=== PATIENT | male | born 1980 | race Caucasian/White ===

== ENCOUNTER 2016-05-21 13:20 | Inpatient (IN) | payer OTHER ==
[~2016-05-21] VITALS: Ht 162.6 cm; Wt 72.0 kg
[2016-05-21 13:22] VITALS: O2SAT 96
[2016-05-21] MEDS ORDERED: ceFAZolin 2 GM PREMIX 50 ML ONE (13:24)
[2016-05-21] MEDS ORDERED: DIPHTH/TETANUS/ACEL PERTUSSIS (BOOSTER) 0.5 ML VIAL/PFS IM ONE ×2 (13:25→13:48)
[2016-05-21 13:41] LABS: AUTOMATED NEUTROPHIL # 10.2 TH/MM3 (1.8-7.7); BASOPHIL # 0.1 TH/MM3 (0-0.2); BASOPHIL % 0.5 % (0.0-2.0); EOSINOPHIL # 0.1 TH/MM3 (0-0.4); EOSINOPHIL % 0.7 % (0.0-4.0); HEMATOCRIT 43.8 % (35.0-46.0); HEMO FLAGS DIFF FINAL; I-STAT POTASSIUM 3.5 MMOL/L (3.5-4.9); LYMPH % 21.7 % (9.0-44.0); LYMPHOCYTE # 3.1 TH/MM3 (1.0-4.8); MEAN CELL VOLUME 92.8 FL (80.0-100.0); MEAN CORPUSCULAR HEMOGLOBIN 31.7 PG (27.0-34.0); MEAN CORPUSCULAR HGB CONC 34.2 % (32.0-36.0); MONO % 4.9 % (0.0-8.0); NEUT % 72.2 % (16.0-70.0); PLATELET COUNT 310 TH/MM3 (150-450); RED BLOOD COUNT 4.72 MIL/MM3 (4.00-5.30); RED CELL DISTRIBUTION WIDTH 13.3 % (11.6-17.2); WHITE BLOOD COUNT 14.2 TH/MM3 (4.0-11.0)
[2016-05-21] MEDS ORDERED: IOHEXOL 350 MG/ML 10 ML VIAL (for RAD DIAG) IV ONE (13:47)
[2016-05-21] MEDS ORDERED: ceFAZolin 2 GM PREMIX 50 ML IV STA (13:48)
[2016-05-21 13:49] LABS: APTT (PATIENT) 22.5 SEC (24.3-30.1); PROTHROMBIN TIME - PATIENT 10.6 SEC (9.8-11.6)
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
[2016-05-21] MEDS ORDERED: ONDANSETRON HCL 4 MG/2 ML VIAL IV PRN ×2 (14:15→14:45)
[2016-05-21] MEDS ORDERED: ACETAMINOPHEN 325 MG TAB PO PRN (14:15)
[2016-05-21] MEDS ORDERED: SODIUM CHLORIDE 0.9% FLUSH 5 ML FLUSH IVF PRN (14:45)
[2016-05-21] MEDS ORDERED: MISCELLANEOUS NURSING INFORMATION XX SCH (14:45)
[2016-05-21] MEDS ORDERED: CHLORHEXIDINE GLUCONATE 2 % 1 PACK (2 CLOTHS) TOP PRN (14:45)
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
[2016-05-21] MEDS ORDERED: LIDOCAINE HCL 1% 50 ML VIAL INFIL ONE (15:00)
--- NOTE | 2016-05-21 15:27 | PD ---
Physical Exam Narrative I was asked by Dr. Chavez to repair patient's lacerations. Please see his documentation for full H&P. Data Data Orders Cefazolin 2 Gm Premix (Ancef 2 Gm Premix (05/21/16 13:24) Jaow-[id number] (Booster) Inj (Boostrix (05/21/16 13:25) I-Stat Profile (05/21/16 13:26) I-Stat Creatinine (05/21/16 13:26) Complete Blood Count With Diff (05/21/16 13:26) Prothrombin Time / Inr (Pt) (05/21/16 13:26) Act Partial Throm Time (Ptt) (05/21/16 13:26) Type And Screen (05/21/16 13:26) Chest, Single Ap (05/21/16 13:26) Pelvis, Ap Only (Routine) (05/21/16 13:26) Ct Brain W/O Iv Contrast(Rout) (05/21/16 13:26) Ct Cerv Spine W/O Contrast (05/21/16 13:26) Ct Abd/Pel W Iv Contrast(Rout) (05/21/16 13:26) Ct Thorax/ Chest W Iv Contrast (05/21/16 13:26) Ct Facial Bones W/O Iv Cont (05/21/16 13:26) Iv Access Insert/Monitor (05/21/16 13:26) Ecg Monitoring (05/21/16 13:26) Oximetry (05/21/16 13:26) Oxygen Administration (05/21/16 13:26) Fentanyl Inj (Fentanyl Inj) (05/21/16 13:29) Femur, One View (05/21/16 ) Tibia/Fibula, One View (05/21/16 ) Iohexol 350 Inj (Omnipaque 350 Inj) (05/21/16 13:47) Cefazolin 2 Gm Premix (Ancef 2 Gm Premix (05/21/16 13:48) Eqpw-Zmn-Fgvckv (Booster) Inj (Boostrix (05/21/16 13:48) Trauma Office Use Only (05/21/16 13:54) Admit Order (Ed Use Only) (05/21/16 13:59) Labs Laboratory Tests Test 2/2/17 13:25 White Blood Count 14.2 TH/MM3 Red Blood Count 4.72 MIL/MM3 Hemoglobin 15.0 GM/DL Bedside Hemoglobin 15.6 G/DL Hematocrit 43.8 % Bedside Hematocrit 46.0 % Mean Corpuscular Volume 92.8 FL Mean Corpuscular Hemoglobin 31.7 PG Mean Corpuscular Hemoglobin 34.2 % Concent Red Cell Distribution Width 13.3 % Platelet Count 310 TH/MM3 Mean Platelet Volume 8.5 FL Neutrophils (%) (Auto) 72.2 % Lymphocytes (%) (Auto) 21.7 % Monocytes (%) (Auto) 4.9 % Eosinophils (%) (Auto) 0.7 % Basophils (%) (Auto) 0.5 % Neutrophils # (Auto) 10.2 TH/MM3 Lymphocytes # (Auto) 3.1 TH/MM3 Monocytes # (Auto) 0.7 TH/MM3 Eosinophils # (Auto) 0.1 TH/MM3 Basophils # (Auto) 0.1 TH/MM3 CBC Comment DIFF FINAL Differential Comment Prothrombin Time 10.6 SEC Prothromb Time International 1.0 RATIO Ratio Activated Partial 22.5 SEC Thromboplast Time Bedside Sodium 140 MMOL/L Bedside Potassium 3.5 MMOL/L Bedside Chloride 100 MMOL/L Bedside Blood Urea Nitrogen 8 MG/DL Bedside Creatinine 1.6 MG/DL Bedside Glucose 129 MG/DL Blood Type O POSITIVE Antibody Screen NEGATIVE MDM Supervised Visit with SURESH: No Procedures Procedure Narrative LACERATION REPAIR LOCATION: Chin LENGTH: Approximately half a centimeter L-shaped NUMBER OF STITCHES/ARTIE: 1 Vicryl simple interrupted REPAIR: Verbal consent was obtained. The area of the laceration was cleaned and prepped. The laceration was infiltrated with lidocaine without epi. The wound was copiously irrigated and explored without evidence of foreign body, bony involvement, ligament injury, tendon injury, or neurovascular injury. The wound was closed using 5-0 Vicryl. This was a single layer repair. The patient was advised to keep the affected area as clean and dry as possible using soap and water. There were no complications. Patient tolerated the procedure well. LACERATION REPAIR LOCATION: Tongue LENGTH: Approximately 2 cm T-shaped NUMBER OF STITCHES/ARTIE: 2 simple interrupted REPAIR: Verbal consent was obtained. The area of the laceration was cleaned and prepped. The laceration was infiltrated with light Without epi. The wound was copiously irrigated and explored without evidence of foreign body, bony involvement, ligament injury, tendon injury, or neurovascular injury. The wound was closed using 5-0 Vicryl. This was a single layer repair. There were no complications. Patient tolerated the procedure well. Diagnosis Primary Impression: Fracture of right femur Qualified Code: S72.321A - Closed displaced transverse fracture of shaft of right femur, initial encounter Additional Impressions: Chin laceration Qualified Code: S01.81XA - Chin laceration, initial encounter Splenic laceration Qualified Code: S36.039A - Splenic laceration, initial encounter Tongue laceration Qualified Code: S01.512A - Tongue laceration, initial encounter Song Wright May 21, 2016 15:27
[2016-05-21 15:30] VITALS: BP 110/72; PULSE 71; RESP 18; O2SAT 97
[2016-05-21] MEDS: LACTATED RINGER'S 1000 ML INJ 1,000 ML IV SCH ×2 (15:53→22:33)
[2016-05-21 18:00] VITALS: PULSE 79
[2016-05-21] MEDS: HYDROmorphone HCL PF 1 MG/ML VIAL IVP PRN ×2 (18:58→21:32)
[2016-05-21 20:00] VITALS: BP 120/67; PULSE 100; PULSE 90; RESP 21; TEMP 98.7; O2SAT 96
[2016-05-21 20:09] LABS: HEMATOCRIT 43.7 % (39.0-51.0); REVIEW FLAG FINAL
[2016-05-21] MEDS: BACITRACIN TOP OINT 15 GM TUBE TOP SCH (21:00)
[2016-05-21] MEDS ORDERED: SODIUM CHLORIDE 0.9% FLUSH 5 ML FLUSH IVF SCH (21:00)
[2016-05-21] MEDS: MAGNESIUM HYDROXIDE SUSP 30 ML CUP PO SCH (21:00)
[2016-05-21] MEDS: DOCUSATE SODIUM 100 MG CAP PO SCH (21:32)
[2016-05-21 22:00] VITALS: PULSE 94
[2016-05-22] VITALS (15 sets, daily range): BP systolic 112–150; BP diastolic 64–91; PULSE 82–97; RESP 16–23; TEMP 98.3–98.9; O2SAT 90–100
[2016-05-22 00:04] LABS: HEMATOCRIT 43.5 % (39.0-51.0); REVIEW FLAG FINAL
[2016-05-22] MEDS: HYDROmorphone HCL PF 1 MG/ML VIAL IVP PRN ×3 (00:39→06:10)
[2016-05-22] MEDS: CHLORHEXIDINE GLUCONATE 2 % 1 PACK (2 CLOTHS) TOP SCH (04:00)
[2016-05-22 04:35] LABS: BASOPHIL % 0.3 % (0.0-2.0); HEMATOCRIT 40.1 % (39.0-51.0); HEMO FLAGS DIFF FINAL; LYMPH % 11.5 % (9.0-44.0); LYMPHOCYTE # 1.1 TH/MM3 (1.0-4.8); MEAN CELL VOLUME 91.2 FL (80.0-100.0); MEAN CORPUSCULAR HEMOGLOBIN 31.9 PG (27.0-34.0); MONO % 13.9 % (0.0-8.0); NEUT % 74.3 % (16.0-70.0); PLATELET COUNT 267 TH/MM3 (150-450); RED BLOOD COUNT 4.39 MIL/MM3 (4.50-5.90); RED CELL DISTRIBUTION WIDTH 13.2 % (11.6-17.2); WHITE BLOOD COUNT 9.4 TH/MM3 (4.0-11.0)
[2016-05-22 04:59] LABS: BICARBONATE 22.1 MEQ/L (21.0-32.0); POTASSIUM 4.4 MEQ/L (3.5-5.1)
[2016-05-22] MEDS: LACTATED RINGER'S 1000 ML INJ 1,000 ML IV SCH ×5 (06:33→21:02)
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
[2016-05-22] MEDS ORDERED: GENTAMICIN SULFATE 80 MG/2 ML VIAL ONE (08:27)
[2016-05-22] MEDS ORDERED: ceFAZolin 2 GM PREMIX 50 ML ONE (08:27)
[2016-05-22] MEDS ORDERED: SODIUM CHLOR 0.9% 250 ML INJ 250 ML ONE (08:27)
[2016-05-22] MEDS ORDERED: VANCOMYCIN HCL 1000 MG VIAL ONE (08:27)
[2016-05-22] MEDS: BACITRACIN TOP OINT 15 GM TUBE TOP SCH ×2 (09:00→21:00)
[2016-05-22] MEDS: DOCUSATE SODIUM 100 MG CAP PO SCH ×2 (09:00→21:00)
[2016-05-22] MEDS ORDERED: MORPHINE SULFATE 4 MG/ML INJ ONE (09:31)
[2016-05-22] MEDS ORDERED: DEXAMETHASONE SOD PHOS 4 MG/ML VIAL ONE (09:32)
[2016-05-22] MEDS ORDERED: FAMOTIDINE 20 MG/2 ML VIAL ONE (09:32)
[2016-05-22] MEDS ORDERED: PROPOFOL 200 MG/20 ML AMP IV ONE (09:45)
[2016-05-22] MEDS ORDERED: ONDANSETRON HCL 4 MG/2 ML VIAL IV PUSH ONE (09:45)
[2016-05-22] MEDS ORDERED: LACTATED RINGER'S 1000 ML INJ 1,000 ML IV ONE (09:45)
[2016-05-22] MEDS ORDERED: NEOSTIGMINE 3 MG/3 ML SYR IV ONE (09:45)
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
[2016-05-22] MEDS ORDERED: HYDR-3366 PO (10:59)
[2016-05-22] MEDS ORDERED: XARE10TA PO (11:01)
[2016-05-22] MEDS ORDERED: diphenhydrAMINE HCL 25 MG CAP PO PRN (11:15)
[2016-05-22] MEDS ORDERED: ACETAMINOPHEN/HYDROcodone 325 MG/10 MG TAB PO PRN (11:15)
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
[2016-05-22] MEDS ORDERED: fentaNYL CITRATE 250 MCG/5 ML AMP ONE (11:35)
[2016-05-22] MEDS ORDERED: *morphine SULFATE 8 MG/ML PERIprocedure ONLY ONE (11:48)
[2016-05-22] MEDS: MORPHINE SULFATE 4 MG/ML INJ IV PUSH PRN ×2 (12:11→21:01)
[2016-05-22] MEDS ORDERED: DO NOT ADM ANY ANTICOAGULANT DRUGS XX PRN (12:15)
--- NOTE | 2016-05-22 13:39 | EKG ---
Date Performed: 05/22/2016 Time Performed: 06:25:58 PTAGE: 35 years EKG: Sinus rhythm Normal ECG NO PREVIOUS TRACING DOCTOR: Haylie Payan Interpretating Date/Time 05/22/2016 13:34:53
--- NOTE | 2016-05-22 14:12 | PD.ORT.PN ---
Subjective Subjective Remarks POD 0 s/p retrograde IMN right femur doing well. pain controlled. Objective Vitals Vital Signs Date Time Temp Pulse Resp B/P Pulse Ox O2 Delivery O2 Flow Rate FiO2 05/22/16 12:00 90 14 161/93 100 Room Air 05/22/16 11:45 92 14 156/96 100 Nasal Cannula 2 05/22/16 11:30 84 14 141/84 99 Nasal Cannula 4 05/22/16 11:23 98.4 86 14 139/93 98 Nasal Cannula 4 05/22/16 08:00 89 05/22/16 07:00 Room Air 05/22/16 07:00 98.3 90 23 137/82 100 05/22/16 06:00 89 05/22/16 04:00 89 05/22/16 03:00 98.7 92 16 116/74 95 05/22/16 02:02 94 21 05/22/16 02:00 87 05/22/16 01:09 20 05/22/16 00:00 91 05/22/16 00:00 98.4 97 20 112/64 95 05/21/16 22:00 94 05/21/16 20:00 90 05/21/16 20:00 98.7 100 21 120/67 96 05/21/16 19:00 Room Air 05/21/16 18:00 79 05/21/16 15:30 71 18 110/72 97 I/O 05/21/16 05/21/16 05/21/16 05/22/16 05/22/16 05/22/16 07:00 15:00 23:00 07:00 15:00 23:00 Intake Total 536 ml 924 ml 1500 ml Output Total 500 ml 700 ml 255 ml Balance 36 ml 224 ml 1245 ml Intake IV Total 536 ml 924 ml 200 ml Other 1300 ml Output Urine Total 500 ml 700 ml 50 ml Estimated Blood Loss 100 ml Other 105 ml # Bowel Movements 0 Result Diagram: 05/22/16 0301 05/22/16 0301 Imaging Last 24 hours Impressions Pelvis X-Ray 05/21/16 1326 Signed Impressions: Service Date/Time: May 13:16 - CONCLUSION: Pelvis is intact. Fracture of the mid/distal right femur. Richar Valdez MD Maxillofacial CT 2/2/17 1326 Signed Impressions: Service Date/Time: May 13:38 - CONCLUSION: Facial soft tissue swelling. No facial fractures. Minimal fluid in the right maxillary sinus.. Richar Valdez MD Head CT 05/21/161325 Signed Impressions: Service Date/Time: May 13:38 - CONCLUSION: Normal examination. Richar Valdez MD Chest X-Ray 05/21/161325 Signed Impressions: Service Date/Time: May 13:16 - CONCLUSION: No acute disease. Richar Valdez MD Chest CT 05/21/161325 Signed Impressions: Service Date/Time: May 13:44 - CONCLUSION: 1. No acute thoracic injury. 2. Minimal hemorrhage adjacent to the spleen. Richar Valdez MD Cervical Spine CT 05/21/161325 Signed Impressions: Service Date/Time: May 13:38 - CONCLUSION: No fracture or subluxation. Richar Valdez MD Abdomen/Pelvis CT 05/21/161325 Signed Impressions: Service Date/Time: May 13:44 - CONCLUSION: 1. Splenic laceration and small amount of hemoperitoneum. No active extravasation. 2. Hepatic steatosis. Richar Valdez MD Objective Remarks RLE: dressign clean and dry. intact. NVI Assessment & Plan Assessment and Plan 1) Right femoral shaft Fx Postop day #0 status post right femur retrograde nail 50% weightbearing right leg Lovenox/Xarelto Discharge home Wednesday or Wednesday if clear with trauma and safe with physical therapy f/u wtih Yogesh or TANA in 2 weeks Kyle Lopez May 22, 2016 14:12
--- NOTE | 2016-05-22 14:13 | RADRPT ---
EXAM DATE/TIME: 05/22/2016 10:49 [facility] COMPARISON: No previous studies available for comparison. INDICATIONS : ORIF right femur IM joe. MEDICAL HISTORY : None. SURGICAL HISTORY : None. ENCOUNTER: Subsequent ACUITY: 2 days PAIN SCORE: Non-responsive. LOCATION: Right femur. FINDINGS: 8 intraoperative spot views of the right femur. Internal fixation joe with proximal and distal transf ixing screws. Femoral shaft fracture. Alignment within normal limits. CONCLUSION: Intraoperative spot images showing femoral fracture with internal fixation hardware in place. Luis Hightower MD on May 22, 2016 at 14:03 Board Certified Radiologist. This report was verified electronically.
--- NOTE | 2016-05-22 14:13 | HHI.FF ---
Face to Face Verification Diagnosis: (1) Fracture of right femur Physical Therapy Gait training Right LE Weight Bearing: Partial WB 50% Nursing Dressing Changes: Daily dressing change, Jose wrap, 4x4s, Xeroform, Coverderm/ Prim[place] I have seen patient Lino Schreiber on 05/22/16. My clinical findings support the need for the requested home health care services because: Ltd mobility - disease progression I certify that my clinical findings support that this patient is homebound because: Post-op weakness Kyle Lopez May 22, 2016 14:13
[2016-05-22] MEDS ORDERED: WALKER/ADULT/FO1 MIS (14:14)
[2016-05-22] MEDS: ACETAMINOPHEN/HYDROcodone 325 MG/10 MG TAB PO PRN ×2 (15:28→22:23)
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
[2016-05-22] MEDS: ceFAZolin 2 GM PREMIX 50 ML IV SCH (18:37)
[2016-05-22] MEDS: MAGNESIUM HYDROXIDE SUSP 30 ML CUP PO SCH (21:00)
[2016-05-22] MEDS: FAMOTIDINE 20 MG TAB PO SCH (21:00)
[2016-05-22] MEDS: SODIUM CHLORIDE 0.9% FLUSH 5 ML FLUSH IVF PRN (21:01)
[2016-05-23] VITALS: BP 120/66; PULSE 87; RESP 17; TEMP 99.2; O2SAT 95
[2016-05-23] MEDS: ceFAZolin 2 GM PREMIX 50 ML IV SCH ×2 (02:07→08:45)
[2016-05-23] MEDS: LACTATED RINGER'S 1000 ML INJ 1,000 ML IV SCH ×5 (02:07→23:48)
[2016-05-23 04:00] VITALS: BP 117/61; PULSE 71; RESP 17; TEMP 98.7; O2SAT 96
[2016-05-23] MEDS: CHLORHEXIDINE GLUCONATE 2 % 1 PACK (2 CLOTHS) TOP SCH (04:00)
[2016-05-23 05:21] LABS: HEMATOCRIT 30.8 % (39.0-51.0); REVIEW FLAG FINAL
[2016-05-23] MEDS: ACETAMINOPHEN/HYDROcodone 325 MG/10 MG TAB PO PRN ×4 (06:09→23:14)
[2016-05-23 08:00] VITALS: BP 95/54; PULSE 75; RESP 14; TEMP 98.1; O2SAT 96
--- NOTE | 2016-05-23 08:13 | PD.ORT.PN ---
Subjective Subjective Remarks pt resting comfortably spoke to patient's who states he has much less pain today involving right leg no other voiced complaints Objective Vitals Vital Signs Date Time Temp Pulse Resp B/P Pulse Ox O2 Delivery O2 Flow Rate FiO2 05/23/16 04:00 98.7 71 17 117/61 96 05/23/16 00:00 99.2 87 17 120/66 95 05/22/16 20:00 98.9 85 18 127/70 97 05/22/16 20:00 83 05/22/16 18:00 85 05/22/16 16:00 82 05/22/16 15:00 98.6 83 19 140/79 100 05/22/16 14:00 82 05/22/16 12:00 90 14 161/93 100 Room Air 05/22/16 12:00 89 05/22/16 11:45 92 14 156/96 100 Nasal Cannula 2 05/22/16 11:30 84 14 141/84 99 Nasal Cannula 4 05/22/16 11:23 98.4 86 14 139/93 98 Nasal Cannula 4 05/22/16 11:00 I/O 05/22/16 05/22/16 05/22/16 05/23/16 05/23/16 05/23/16 07:00 15:00 23:00 07:00 15:00 23:00 Intake Total 924 ml 5107 ml 240 ml 240 ml Output Total 700 ml 1205 ml 400 ml 1650 ml Balance 224 ml 3902 ml -160 ml -1410 ml Intake Oral 220 ml 240 ml 240 ml IV Total 924 ml 3587 ml Other 1300 ml Output Urine Total 700 ml 1000 ml 400 ml 1650 ml Estimated Blood Loss 100 ml Other 105 ml # Bowel Movements 0 Result Diagram: 05/23/16 0410 05/22/16 0301 Imaging Last 24 hours Impressions Pelvis X-Ray 05/21/16 1326 Signed Impressions: Service Date/Time: May 13:16 - CONCLUSION: Pelvis is intact. Fracture of the mid/distal right femur. Richar Valdez MD Maxillofacial CT 05/21/16 1326 Signed Impressions: Service Date/Time: May 13:38 - CONCLUSION: Facial soft tissue swelling. No facial fractures. Minimal fluid in the right maxillary sinus.. Richar Valdez MD Head CT 05/21/161325 Signed Impressions: Service Date/Time: May 13:38 - CONCLUSION: Normal examination. Richar Valdez MD Chest X-Ray 05/21/161325 Signed Impressions: Service Date/Time: May 13:16 - CONCLUSION: No acute disease. Richar Valdez MD Chest CT 05/21/161325 Signed Impressions: Service Date/Time: May 13:44 - CONCLUSION: 1. No acute thoracic injury. 2. Minimal hemorrhage adjacent to the spleen. Richar Valdez MD Cervical Spine CT 05/21/161325 Signed Impressions: Service Date/Time: May 13:38 - CONCLUSION: No fracture or subluxation. Richar Valdez MD Abdomen/Pelvis CT 05/21/161325 Signed Impressions: Service Date/Time: May 13:44 - CONCLUSION: 1. Splenic laceration and small amount of hemoperitoneum. No active extravasation. 2. Hepatic steatosis. Richar Valdez MD Objective Remarks seen by Dr. Sree Salinas RLE: dressing clean and dry. intact. NVI Assessment & Plan Assessment and Plan 1) Right femoral shaft Fx Postop day #1 status post right femur retrograde nail 50% weightbearing right leg Lovenox/Xarelto Discharge home Wednesday or Wednesday if clear with trauma and safe with physical therapy f/u solange Zuñiga or TANA in 2 weeks Patricia Nascimento May 23, 2016 08:13
[2016-05-23] MEDS: LACTULOSE SYRUP 20 GM/30 ML CUP PO SCH (08:44)
[2016-05-23] MEDS: DOCUSATE SODIUM 100 MG CAP PO SCH ×2 (08:44→20:50)
[2016-05-23] MEDS: BACITRACIN TOP OINT 15 GM TUBE TOP SCH ×2 (08:45→21:00)
[2016-05-23 12:00] VITALS: BP 100/56; PULSE 80; RESP 16; TEMP 98.2; O2SAT 94
[2016-05-23 13:53] LABS: HEMATOCRIT 31.5 % (39.0-51.0); REVIEW FLAG FINAL
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
[2016-05-23 16:00] VITALS: BP 112/62; PULSE 78; RESP 14; TEMP 97.9; O2SAT 96
--- NOTE | 2016-05-23 18:03 | HHI.FF ---
Face to Face Verification Diagnosis: (1) Chin laceration (2) Fracture of right femur (3) Splenic laceration (4) Tongue laceration Physical Therapy Order: Evaluate and Treat, Improve ambulation, Strength and gait training Home Health Nursing Order: Medical education Wound care and dressing changes Nursing assessment with vital signs I have seen patient Lino Schreiber on 05/23/16. My clinical findings support the need for the requested home health care services because: Ltd mobility - disease progression Deconditioned w/ increased weakness Limited ability to care for self High risk of falls I certify that my clinical findings support that this patient is homebound because: Post-op weakness Unsteady gait/balance Little Grady May 23, 2016 18:03
[2016-05-23 20:00] VITALS: BP 127/76; PULSE 75; RESP 22; TEMP 98.6; O2SAT 97
[2016-05-23] MEDS: FAMOTIDINE 20 MG TAB PO SCH (20:50)
[2016-05-23] MEDS: SODIUM CHLORIDE 0.9% FLUSH 5 ML FLUSH IVF PRN (20:50)
[2016-05-23] MEDS: MAGNESIUM HYDROXIDE SUSP 30 ML CUP PO SCH (20:50)
[2016-05-23] MEDS: ENOXAPARIN SODIUM 40 MG/0.4 ML SYRINGE SQ SCH ×2 (23:13)
[2016-05-24] VITALS: BP 120/73; PULSE 72; RESP 20; TEMP 99.4; O2SAT 97
[2016-05-24] MEDS: CHLORHEXIDINE GLUCONATE 2 % 1 PACK (2 CLOTHS) TOP SCH ×2 (04:00→20:37)
[2016-05-24] MEDS: ACETAMINOPHEN/HYDROcodone 325 MG/10 MG TAB PO PRN ×3 (06:06→22:36)
[2016-05-24] MEDS: LACTATED RINGER'S 1000 ML INJ 1,000 ML IV SCH (06:33)
[2016-05-24 07:16] LABS: HEMATOCRIT 31.7 % (39.0-51.0); REVIEW FLAG FINAL
[2016-05-24 08:00] VITALS: BP 107/63; PULSE 60; RESP 18; TEMP 99; O2SAT 97
[2016-05-24] MEDS ORDERED: BISACODYL 10 MG SUPP RECTAL ONE (08:00)
[2016-05-24] MEDS ORDERED: BISACODYL EC 5 MG TABEC PO ONE (08:00)
--- NOTE | 2016-05-24 08:33 | PD.ORT.PN ---
Subjective Subjective Remarks pt resting comfortably, complaining of intermittent abdominal pain, constipation , no appetite Objective Vitals Vital Signs Date Time Temp Pulse Resp B/P Pulse Ox O2 Delivery O2 Flow Rate FiO2 05/24/16 00:00 99.4 72 20 120/73 97 05/23/16 20:00 98.6 75 22 127/76 97 05/23/16 16:00 97.9 78 14 112/62 96 05/23/16 12:00 98.2 80 16 100/56 94 05/23/16 10:12 21 I/O 05/23/16 05/23/16 05/23/16 05/24/16 05/24/16 05/24/16 07:00 15:00 23:00 07:00 15:00 23:00 Intake Total 240 ml 720 ml 240 ml 120 ml Output Total 1650 ml 950 ml 500 ml 850 ml Balance -1410 ml -230 ml -260 ml -730 ml Intake Oral 240 ml 720 ml 240 ml 120 ml IV Total 0 ml Output Urine Total 1650 ml 950 ml 500 ml 850 ml # Bowel Movements 0 0 0 Result Diagram: 05/24/16 0602 05/22/16 0301 Imaging Last 24 hours Impressions Pelvis X-Ray 05/21/161325 Signed Impressions: Service Date/Time: May 13:16 - CONCLUSION: Pelvis is intact. Fracture of the mid/distal right femur. Richar Valdez MD Maxillofacial CT 05/21/161325 Signed Impressions: Service Date/Time: May 13:38 - CONCLUSION: Facial soft tissue swelling. No facial fractures. Minimal fluid in the right maxillary sinus.. Richar Valdez MD Head CT 05/21/161325 Signed Impressions: Service Date/Time: May 13:38 - CONCLUSION: Normal examination. Richar Valdez MD Chest X-Ray 05/21/161325 Signed Impressions: Service Date/Time: May 13:16 - CONCLUSION: No acute disease. Richar Valdez MD Chest CT 05/21/161325 Signed Impressions: Service Date/Time: May 13:44 - CONCLUSION: 1. No acute thoracic injury. 2. Minimal hemorrhage adjacent to the spleen. Richar Valdez MD Cervical Spine CT 05/21/16 1326 Signed Impressions: Service Date/Time: May 13:38 - CONCLUSION: No fracture or subluxation. Richar Valdez MD Abdomen/Pelvis CT 05/21/166 Signed Impressions: Service Date/Time: May 13:44 - CONCLUSION: 1. Splenic laceration and small amount of hemoperitoneum. No active extravasation. 2. Hepatic steatosis. Richar Valdez MD Objective Remarks seen by Dr. Sree Salinas RLE: dressing clean and dry. intact. NVI Assessment & Plan Assessment and Plan 1) Right femoral shaft Fx Postop day #2 status post right femur retrograde nail 50% weightbearing right leg Lovenox/Xarelto Discharge home Wednesday if clear with trauma and safe with physical therapy f/u wtjuana Zuñiga or TANA in 2 weeks Patricia Nascimento May 24, 2016 08:33
[2016-05-24] MEDS: LACTULOSE SYRUP 20 GM/30 ML CUP PO SCH (09:00)
[2016-05-24] MEDS: DOCUSATE SODIUM 100 MG CAP PO SCH ×2 (10:31→20:36)
[2016-05-24] MEDS ORDERED: NORC5TAB PO (11:57)
[2016-05-24 12:00] VITALS: BP 119/61; PULSE 67; RESP 18; TEMP 98.5; O2SAT 98
[2016-05-24] MEDS ORDERED: DOCU1CAP39 PO (12:03)
[2016-05-24] MEDS ORDERED: MILKSUS PO (12:03)
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
[2016-05-24 16:00] VITALS: BP 129/62; PULSE 63; RESP 18; TEMP 97.5; O2SAT 100
[2016-05-24 20:00] VITALS: BP 113/52; PULSE 72; RESP 22; TEMP 99.9; O2SAT 98
[2016-05-24] MEDS: MAGNESIUM HYDROXIDE SUSP 30 ML CUP PO SCH (20:35)
[2016-05-24] MEDS: ENOXAPARIN SODIUM 40 MG/0.4 ML SYRINGE SQ SCH (22:36)
[2016-05-25] VITALS: BP 117/68; PULSE 71; RESP 22; TEMP 97.7; O2SAT 100
--- NOTE | 2016-05-25 06:57 | PD.ORT.PN ---
Subjective Subjective Remarks Pain controlled. Unable to void. Continues to have pain in his heel of his right foot with significant swelling and blistering around ankle Objective Vitals Vital Signs Date Time Temp Pulse Resp B/P Pulse Ox O2 Delivery O2 Flow Rate FiO2 05/25/16 00:00 97.7 71 22 117/68 100 05/24/16 20:00 99.9 72 22 113/52 98 05/24/16 16:00 97.5 63 18 129/62 100 05/24/16 12:00 98.5 67 18 119/61 98 05/24/16 08:00 99.0 60 18 107/63 97 I/O 05/24/16 05/24/16 05/24/16 05/25/16 05/25/16 05/25/16 07:00 15:00 23:00 07:00 15:00 23:00 Intake Total 120 ml 480 ml 360 ml 240 ml Output Total 850 ml 400 ml 350 ml 800 ml Balance -730 ml 80 ml 10 ml -560 ml Intake Oral 120 ml 480 ml 360 ml 240 ml IV Total 0 ml Output Urine Total 850 ml 400 ml 350 ml 800 ml Bladder Scan Volume Amount 212 ml 300 ml # Voids 1 # Bowel Movements 0 1 1 0 Result Diagram: 05/24/16 0602 05/22/16 0301 Imaging Last 24 hours Impressions Pelvis X-Ray 05/21/161325 Signed Impressions: Service Date/Time: May 13:16 - CONCLUSION: Pelvis is intact. Fracture of the mid/distal right femur. Richar Valdez MD Maxillofacial CT 05/21/161325 Signed Impressions: Service Date/Time: May 13:38 - CONCLUSION: Facial soft tissue swelling. No facial fractures. Minimal fluid in the right maxillary sinus.. Richar Valdez MD Head CT 05/21/161325 Signed Impressions: Service Date/Time: May 13:38 - CONCLUSION: Normal examination. Richar Valdez MD Chest X-Ray 05/21/161325 Signed Impressions: Service Date/Time: May 13:16 - CONCLUSION: No acute disease. Richar Valdez MD Chest CT 05/21/161325 Signed Impressions: Service Date/Time: May 13:44 - CONCLUSION: 1. No acute thoracic injury. 2. Minimal hemorrhage adjacent to the spleen. Richar Valdez MD Cervical Spine CT 05/21/16 1326 Signed Impressions: Service Date/Time: May 13:38 - CONCLUSION: No fracture or subluxation. Richar Valdez MD Abdomen/Pelvis CT 05/21/16 1326 Signed Impressions: Service Date/Time: May 13:44 - CONCLUSION: 1. Splenic laceration and small amount of hemoperitoneum. No active extravasation. 2. Hepatic steatosis. Richar Valdez MD Objective Remarks Right lower extremity: Clean dry dressings over femur and knee. Compartments soft. Mild tenderness with range of motion of knee. He has 2 significant blisters over the anterior portion of his ankle. He has swelling of +3 over the foot with pain to palpation over heel. He has no tenderness to palpation over toes or metatarsals. He has intact sensation with good capillary refills Assessment & Plan Assessment and Plan 1) Right femoral shaft Fx Postop day #3 status post right femur retrograde nail 50% weightbearing right leg Daily dressing changes Lovenox/Xarelto X-rays ordered of right foot to evaluate for possible calcaneus fracture Hold on weightbearing activities on right lower extremity until x-rays are performed DARI SHIELDS PA-C May 25, 2016 06:56
--- NOTE | 2016-05-25 07:31 | RADRPT ---
EXAM DATE/TIME: 05/25/2016 07:11 [place] COMPARISON: No previous studies available for comparison. INDICATIONS : Right foot pain. Blisters on top of foot. MEDICAL HISTORY : None. SURGICAL HISTORY : ORIF right femur. ENCOUNTER: Initial ACUITY: 3 days PAIN SCORE: 5/10 LOCATION: Right foot. FINDINGS: Three views of the right foot demonstrate no fracture or dislocation. The Lisfranc joint appears inta ct. Mineralization is within normal limits and there is no significant arthropathy. No radiopaque for eign body is identified. There is moderate soft tissue swelling on the dorsal aspect of the foot supe rficial to the talus. CONCLUSION: Focal lobulated soft tissue swelling on the dorsal aspect of the foot. No acute osseous abnormality i s identified. Seun Payne MD on May 25, 2016 at 7:28 Board Certified Radiologist. This report was verified electronically.
[2016-05-25 08:00] VITALS: BP 136/79; PULSE 70; RESP 18; TEMP 99.9; O2SAT 100
[2016-05-25] MEDS: DOCUSATE SODIUM 100 MG CAP PO SCH (08:05)
--- NOTE | 2016-05-25 10:29 | PD.ORT.PN ---
Subjective Subjective Remarks Pain controlled. Unable to void. Continues to have pain in his heel of his right foot with significant swelling and blistering around ankle Objective Vitals Vital Signs Date Time Temp Pulse Resp B/P Pulse Ox O2 Delivery O2 Flow Rate FiO2 05/25/16 08:00 99.9 70 18 136/79 100 05/25/16 00:00 97.7 71 22 117/68 100 05/24/16 20:00 99.9 72 22 113/52 98 05/24/16 16:00 97.5 63 18 129/62 100 05/24/16 12:00 98.5 67 18 119/61 98 I/O 05/24/16 05/24/16 05/24/16 05/25/16 05/25/16 05/25/16 07:00 15:00 23:00 07:00 15:00 23:00 Intake Total 120 ml 480 ml 360 ml 240 ml Output Total 850 ml 400 ml 350 ml 800 ml Balance -730 ml 80 ml 10 ml -560 ml Intake Oral 120 ml 480 ml 360 ml 240 ml IV Total 0 ml Output Urine Total 850 ml 400 ml 350 ml 800 ml Bladder Scan Volume Amount 212 ml 300 ml # Voids 1 # Bowel Movements 0 1 1 0 Result Diagram: 05/24/16 0602 05/22/16 0301 Imaging Last Impressions Foot X-Ray 05/25/16 0653 Signed Impressions: Service Date/Time: Wednesday, May 25, 2016 07:11 - CONCLUSION: Focal lobulated soft tissue swelling on the dorsal aspect of the foot. No acute osseous abnormality is identified. Seun Payne MD Femur X-Ray 05/22/16 0000 Signed Impressions: Service Date/Time: Sunday, May 22, 2016 10:49 - CONCLUSION: Intraoperative spot images showing femoral fracture with internal fixation hardware in place. Luis Hightower MD Pelvis X-Ray 05/21/16 1326 Signed Impressions: Service Date/Time: May 13:16 - CONCLUSION: Pelvis is intact. Fracture of the mid/distal right femur. Richar Valdez MD Maxillofacial CT 05/21/16 1326 Signed Impressions: Service Date/Time: May 13:38 - CONCLUSION: Facial soft tissue swelling. No facial fractures. Minimal fluid in the right maxillary sinus.. Richar Valdez MD Head CT 05/21/16 1326 Signed Impressions: Service Date/Time: May 13:38 - CONCLUSION: Normal examination. Richar Valdez MD Chest X-Ray 05/21/16 1326 Signed Impressions: Service Date/Time: May 13:16 - CONCLUSION: No acute disease. Richar Valdez MD Chest CT 05/21/16 1326 Signed Impressions: Service Date/Time: May 13:44 - CONCLUSION: 1. No acute thoracic injury. 2. Minimal hemorrhage adjacent to the spleen. Richar Valdez MD Cervical Spine CT 05/21/16 1326 Signed Impressions: Service Date/Time: May 13:38 - CONCLUSION: No fracture or subluxation. Richar Valdez MD Abdomen/Pelvis CT 05/21/16 132 Signed Impressions: Service Date/Time: May 13:44 - CONCLUSION: 1. Splenic laceration and small amount of hemoperitoneum. No active extravasation. 2. Hepatic steatosis. Richar Valdez MD Tibia/Fibula X-Ray 05/21/16 0000 Signed Impressions: Service Date/Time: May 13:16 - CONCLUSION: Right tibia/fibula appears intact. Mid to distal right femoral fracture. Richar Valdez MD Last 24 hours Impressions Pelvis X-Ray 05/21/16 1326 Signed Impressions: Service Date/Time: May 13:16 - CONCLUSION: Pelvis is intact. Fracture of the mid/distal right femur. Richar Valdez MD Maxillofacial CT 05/21/16 1326 Signed Impressions: Service Date/Time: May 13:38 - CONCLUSION: Facial soft tissue swelling. No facial fractures. Minimal fluid in the right maxillary sinus.. Richar Valdez MD Head CT 05/21/16 1326 Signed Impressions: Service Date/Time: May 13:38 - CONCLUSION: Normal examination. Richar Valdez MD Chest X-Ray 05/21/16 1326 Signed Impressions: Service Date/Time: May 13:16 - CONCLUSION: No acute disease. Richar Valdez MD Chest CT 05/21/161325 Signed Impressions: Service Date/Time: May 13:44 - CONCLUSION: 1. No acute thoracic injury. 2. Minimal hemorrhage adjacent to the spleen. Richar Valdez MD Cervical Spine CT 05/21/161325 Signed Impressions: Service Date/Time: May 13:38 - CONCLUSION: No fracture or subluxation. Richar Valdez MD Abdomen/Pelvis CT 05/21/161325 Signed Impressions: Service Date/Time: May 13:44 - CONCLUSION: 1. Splenic laceration and small amount of hemoperitoneum. No active extravasation. 2. Hepatic steatosis. Richar Valdez MD Objective Remarks Right lower extremity: Clean dry dressings over femur and knee. Compartments soft. Mild tenderness with range of motion of knee. He has 2 significant blisters over the anterior portion of his ankle. The blisters were unroofed. He has swelling of +3 over the foot with pain to palpation over heel. He has no tenderness to palpation over toes or metatarsals. He has intact sensation with good capillary refills Assessment & Plan Assessment and Plan 1) Right femoral shaft Fx Postop day #3 status post right femur retrograde nail 50% weightbearing right leg Daily dressing changes with bacitracin over abrasions and blistered areas Lovenox/Xarelto X-rays negative for fracture to foot ortho cleared for discharge follow up with Yogesh or [facility] in 2 weeks DARI SHIELDS PA-C May 25, 2016 09:45
[2016-05-25 10:48] LABS: BLOOD, URINE TRACE (NEG); GLUCOSE,URINE NEG (NEG); KETONE, URINE NEG (NEG); MUCUS URINE FEW /lpf (OCC); NITRITE,URINE NEG (NEG); PH, URINE 8.5 (5.0-8.5); URINE COLOR YELLOW (YELLW/STRAW)
[2016-05-25 10:50] LABS: COMMENT (UR) CATH-CULTURE IND; CULTURE IF INDICATED CATH CULTURE IND
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
[2016-05-25 12:00] VITALS: BP 134/80; PULSE 73; RESP 18; TEMP 98.7; O2SAT 100
[2016-05-25] MEDS: ACETAMINOPHEN/HYDROcodone 325 MG/10 MG TAB PO PRN (13:15)
[2016-05-25 14:36] VITALS: RESP 17
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
== END 2016-05-25 17:45 | disposition home or self-care (01) | DRG 956 ==
LOC: NEPI 13:20 → EDSEX 14:03 → NEDA 14:03 → EDBD 14:03 → NEDA 15:43 → N03B 17:08 → N07B 05-22 21:56
PROVIDERS: ADMIT Surgery; ATTEND Surgery
PROC: 0QS806Z Reposition Right Femoral Shaft with Intramedullary Internal Fixation Device, Open Approach (ICD-10-PCS; 2016-05-22)
PROC: 0HQ1XZZ Repair Face Skin, External Approach (ICD-10-PCS; principal; 2016-05-23)
PROC: 0CQ7XZZ Repair Tongue, External Approach (ICD-10-PCS; 2016-05-23)
PROC: 0T9B70Z Drainage of Bladder with Drainage Device, Via Natural or Artificial Opening (ICD-10-PCS; 2016-05-24)
DX: S72.321A Displaced transverse fracture of shaft of right femur, initial encounter for closed fracture (principal); S36.113A Laceration of liver, unspecified degree, initial encounter; I95.9 Hypotension, unspecified; S01.81XA Laceration without foreign body of other part of head, initial encounter; V49.9XXA Car occupant (driver) (passenger) injured in unspecified traffic accident, initial encounter; Y93.89 Activity, other specified; Y92.9 Unspecified place or not applicable; S01.512A Laceration without foreign body of oral cavity, initial encounter; S80.811A Abrasion, right lower leg, initial encounter; Z86.19 Personal history of other infectious and parasitic diseases; R33.0 Drug induced retention of urine; T40.605A Adverse effect of unspecified narcotics, initial encounter; Y92.239 Unspecified place in hospital as the place of occurrence of the external cause; K59.00 Constipation, unspecified; S90.521A Blister (nonthermal), right ankle, initial encounter
CPT/HCPCS: 12011; 70450; 70486; 71010; 71260; 72125; 72170; 73551; 73552; 73630; 74177; 76000; 80048; 81001; 82435; 82565; 82947; 84132; 84295; 84520; 85014; 85018; 85025; 85610; 85730; 86850; 86900; 86901; 87086; 87641; 90715; 93005; 94150; 96374; 96375; 99291; A0431-QM-SH; A0436-QM-SH; C1713; G0390; J0690; J1100; J1170; J1580; J1650; J2270; J2405; J2710; J3010; J3370; J7050; J7120; L0150; Q9967